=== PATIENT | male | born 1985 | race Two or more races ===

== ENCOUNTER 2018-05-04 20:57 | Emergency (ER) | payer MEDICAID ==
[~2018-05-04] VITALS: Ht 185.4 cm; Wt 97.5 kg
[2018-05-04 21:30] VITALS: BP 145/89
[2018-05-04] MEDS ORDERED: FLUORESCEIN SOD 1 MG TEST STRIP RIGHTEYE ONE (23:15)
[2018-05-04] MEDS ORDERED: TETRACAINE 1% INJ 2 ML VIAL IJ ONE (23:15)
== END 2018-05-04 23:51 | disposition home or self-care (01) ==
LOC: ER 20:57
DX: H10.9 Unspecified conjunctivitis (principal)